=== PATIENT | male | born 1990 | race Caucasian/White ===

== ENCOUNTER 2021-04-24 08:34 | Day surgery (SDC) | payer OTHER ==
[2021-04-24] VITALS (8 sets, daily range): BP systolic 108–124; BP diastolic 52–84
[~2021-04-24] VITALS: Ht 172.7 cm; Wt 67.1 kg
--- NOTE | 2021-04-24 09:12 | NUR ---
pt arrived to [facility] accompanied by [facility] BOONE in stable condition ambulatory
--- NOTE | 2021-04-24 10:03 | NUR ---
RT at bedside obtaining EKG
[2021-04-24 10:22] LABS: HEMATOCRIT 43.5 % (39.0-50.0); HEMOGLOBIN 14.6 g/dl (14.0-18.0); IMMATURE GRANULOCYTES 0.2 % (0.0-5.0); MEAN CELL VOLUME 87.3 fL CALC (80.0-100.0); MEAN CORPUSCULAR HGB 29.3 pG CALC (26.0-32.0); MEAN CORPUSCULAR HGB CONC 33.6 g/dL CAL (32.0-36.0); NEUT# 2.56 thou/uL (1.82-7.42); RED BLOOD COUNT 4.98 mill/uL (4.70-6.10); RED CELL DISTRI WIDTH 11.9 % (11.5-15.5)
[2021-04-24 10:37] LABS: ALBUMIN 4.5 g/dL (3.2-5.0); BILIRUBIN, TOTAL 0.5 mg/dL (0.0-1.4); TOTAL PROTEIN 8.2 g/dL (6.3-8.2)
[2021-04-24] MEDS ORDERED: GABAPENTIN100 MG PO (10:48)
[2021-04-24] MEDS ORDERED: XANAX1 MG PO (10:49)
--- NOTE | 2021-04-24 12:10 | NUR ---
DR BAUTISTA NOTIFIED OF VSS; NEW ORDERS OBTAINED. WRITTEN AND FAXED TO PHARMACY.
--- NOTE | 2021-04-24 12:48 | NUR ---
FILOMENA RT AT BEDSIDE COMPLETING BREATHING TX. PO PROTONIX AND VALIUM GIVEN. NO OTHER NEEDS AT THIS TIME. CALL LIGHT WITHIN REACH.
--- NOTE | 2021-04-24 13:17 | NUR ---
DR BAUTISTA AT BEDSIDE DISCUSSING POC
--- NOTE | 2021-04-24 13:27 | NUR ---
PT TAKEN VIA BED FOR [facility] PROCEDURE ACCOMPANIED BY FAIZAN BOONE. PT REMAINS IN STABLE CONDITION
[2021-04-24 14:33] LABS: ANION GAP 15 (6-22 (CALC)); BUN 12 mg/dL (9-20); BUN/CREATININE RATIO 19 (12-20 (CALC)); CARBON DIOXIDE 28 mmol/l (22-30); CHLORIDE 104 mmol/l (95-108); CREATININE 0.6 mg/dL (0.7-1.3); GFR > 60 ML/MIN (>=60 (CALC)); GFR FOR AFR.AMER. > 60 ML/MIN (>=60 (CALC)); SODIUM 141 mmol/l (137-146)
--- NOTE | 2021-04-24 15:27 | NUR ---
VERBAL ORDER OBTAINED FOR TRANSDERMAL PATCH; APPLIED BY BRITTANEY BOONE. PT REMAINS IN [facility] PROCEDURE.
[2021-04-24] MEDS ORDERED: CLONIDINE0.1 MG PO (16:46)
[2021-04-24] MEDS ORDERED: KLONOPIN0.5 MG PO (16:46)
--- NOTE | 2021-04-24 19:56 | NUR ---
PT ARRIVES TO UNIT VIA BED, ACCOMPANIED BY [facility] STAFF: DR. BAUTISTA AND BRITTANEY RN. PT WHEELED INTO 277. ATTATCHED TO MONITOR FOR POST-PROCEDURE FREQUENT VS MONITORING. BEDSIDE REPORT RECEIVED FROM BRITTANEY BOONE. PT APPEARS TO BE SLEEPING COMFORTABLY. NO APPARENT DISTRESS. RESPIRATIONS REGULAR AND UNLABORED. BED LOCKED IN LOW POSITION WITH BEDRAILS UP X2. CALL CARTWRIGHT WITHIN REACH. BED ALARM ON.
[2021-04-24] MEDS ORDERED: NALTREXONE50 MG PO (20:10)
--- NOTE | 2021-04-24 22:05 | NUR ---
PT ASSISTED UP TO BATHROOM, VOIDS AND PASSES SOFT MEDIUM BROWN BM INTO TOILET W/O DIFFICULTY. GAIT IS UNSTEADY AND UNBALANCED. STANDBY ASSIST NEEDED. PT ASSISTED BACK TO BED.
--- NOTE | 2021-04-25 00:15 | NUR ---
PT ASSISTED UP TO BATHROOM, VOIDS INTO TOILET W/O DIFFICULTY. GAIT IS UNSTEADY AND UNBALANCED. STANDBY ASSIST NEEDED.
--- NOTE | 2021-04-25 03:21 | NUR ---
PT ASSISTED TO REST IN RECLINER HE REPORTS HE IS FEELING TO RESTLESS IN BED AND WOULD LIKE TO SIT UP.
--- NOTE | 2021-04-25 03:24 | NUR ---
PT ASSISTED BACK INTO BED HE KNOW REQUESTS TO LAY BACK DOWN.
--- NOTE | 2021-04-25 03:39 | NUR ---
PT REQUESTING TO WEAR HIS CLOTHES FROM HOME. PT ASSISTED TO DRESS. PT ASSISTED TO BATHROOM. VOIDS INTO TOILET STANDING UP. ASSISTED BACK TO BED. PT REMAINS DROWSY WITH UNBALANCED AND UNSTEADY GATE.
--- NOTE | 2021-04-25 03:51 | NUR ---
[employer]ATOR IN ROOM TO COLLECT AM LABS
[2021-04-25 04:00] VITALS: BP 109/59
[2021-04-25 04:43] LABS: ANION GAP 15 (6-22 (CALC)); BUN 10 mg/dL (9-20); BUN/CREATININE RATIO 16 (12-20 (CALC)); CARBON DIOXIDE 24 mmol/l (22-30); CHLORIDE 108 mmol/l (95-108); CREATININE 0.6 mg/dL (0.7-1.3); GFR > 60 ML/MIN (>=60 (CALC)); GFR FOR AFR.AMER. > 60 ML/MIN (>=60 (CALC)); MAGNESIUM 1.9 mg/dL (1.6-2.3); SODIUM 143 mmol/l (137-146)
[2021-04-25 04:47] LABS: POTASSIUM 3.9 mmol/l (3.5-5.1)
--- NOTE | 2021-04-25 07:05 | NUR ---
REPORT RECEIVED FROM PAOLO LEWIS
[2021-04-25 07:35] VITALS: BP 110/62
--- NOTE | 2021-04-25 07:35 | NUR ---
PT RESTING IN SUPINE POSITION,ALERT TO PERSON AND PLACE.DROWSY;VS OBTAINED AND ASSESSMENT COMPLETED;PT DENIES ANY CURRENT PAIN OR DISCOMFORTS,PAIN SCALE AND REPORTING EDUCATED;RESPIRATIONS EVEN AND UNLABORED ON RA,CLEAR LUNG SOUNDS;ABDOMEN SOFT ON PALPATION AND ACTIVE IN ALL 4 QUADRANTS;STRONG PEDAL PULSES;SKIN INTACT;#20G TO LW FLUSHED AND PATENT,SITE APPEARS HEALTHY;PT DENIES ANY ADDITIONAL NEEDS AND IS ENCOURAGED TO CALL FOR ASSISTANCE IF NEEDED;FALL PRECAUTIONS IN PLACE WITH BED IN THE LOWEST POSITION AND BED ALARM ON FOR SAFETY;CALL LIGHT IN REACH;WILL CONTINUE TO MONITOR
--- NOTE | 2021-04-25 09:25 | NUR ---
PT ASSISTED WITH SHOWER,LINEN CHANGE, AND ORAL CARE;PT TOLERATED WELL;IV SITE TO LH REMOVED BY PT WITH CATHETER INTACT;RESPIRATIONS EVEN AND UNLABORED ON RA;PT DENIES ANY CURRENT PAIN OR DISCOMFORTS;PT ASSISTED WITH MEAL TRAY SET UP;ALL SAFETY PRECAUTIONS REMAIN IN PLACE WITH BED IN THE LOWEST POSITION AND BED ALARM ON FOR SAFETY;CALL LIGHT IN REACH;WILL CONTINUE TO MONITOR
[2021-04-25 11:25] VITALS: BP 104/53
--- NOTE | 2021-04-25 11:25 | NUR ---
PT RESTING IN SUPINE POSITION, REMAINS DROWSY;RESPIRATIONS EVEN AND UNLABORED ON RA;PT DENIES ANY CURRENT PAIN OR DISCOMFORTS;VS WNL;PT ENCOURAGED TO CALL FOR ASSISTANCE IF NEEDED;FALL PRECAUTIONS REMAIN IN PLACE WITH BED IN THE LOWEST POSITION AND BED ALARM ON FOR SAFETY;CALL LIGHT IN REACH;WILL CONTINUE TO MONITOR
--- NOTE | 2021-04-25 12:30 | NUR ---
PT AMBULATED HALLWAY WITH AN UNSTEADY GAIT AND STAND BY ASSIST WITH WRITTER.PT RE-POSITIONED INTO RECLINER;CALL LIGHT IN REACH;WILL CONTINUE TO MONITOR
--- NOTE | 2021-04-25 14:45 | NUR ---
ALL DISCHARGE INSTRUCTIONS PROVIDED AT THIS TIME;PT TO F/U WITH [facility] OUTPATIENT AND TAKE MEDICATION PRESCRIBED.RX SENT TO PHARMACY;PT DENIES ANY ADDITIONAL QUESTIONS OR NEEDS;SIGNIFICANT OTHER TO TRANSPORT PT HOME;WILL CONTINUE TO MONITOR
--- NOTE | 2021-04-25 15:20 | NUR ---
Discharge instructions given. Patient verbalizes understanding of same. Discharged in stable condition via Ambulatory to Home with spouse. All belongings sent with pt. PT AMBULATED TO LOBBY WITH THIS WRITTER;ALL BELONGINGS LEFT WITH PT. SIGNIFICANT OTHER TO TRANSPORT PT HOME.
== END 2021-04-25 15:20 | disposition home or self-care (01) | DRG 897 ==
LOC: MS2 08:34 → ANR 08:34 → MS2 08:38 → ANR 04-25 15:20
PROVIDERS: ATTEND Anesthesiology
DX: F11.20 Opioid dependence, uncomplicated (principal)
CPT/HCPCS: J2060; J2354